=== PATIENT | male | born 1985 ===

== ENCOUNTER 2017-10-21 12:07 | Emergency (ER) | payer OTHER ==
[2017-10-21 12:13] VITALS: BP 143/84
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
[2017-10-21] MEDS ORDERED: MOTRIN PO ONE (12:49)
--- NOTE | 2017-10-21 15:26 | XRay Report ---
LUMBOSACRAL SPINE, 3 VIEWS: History: Back pain Findings: The vertebral bodies, disk spaces and posterior elements are intact. No compression deformity or malalignment. The SI joints are symmetric and unremarkable. Impression: 1. No evidence for acute injury to the lumbar spine.
--- NOTE | 2017-10-21 15:26 | XRay Report ---
AP AND LATERAL CERVICAL SPINE: History: Neck pain. The vertebral bodies are well mineralized and normal in alignment and vertebral height with well preserved interspace distances. The visualized portions of the posterior elements are normal. IMPRESSION: Normal study.
== END 2017-10-21 15:58 | disposition home or self-care (01) ==
LOC: ED 12:07
DX: S13.4XXA Sprain of ligaments of cervical spine, initial encounter (principal); S39.012A Strain of muscle, fascia and tendon of lower back, initial encounter; V89.2XXA Person injured in unspecified motor-vehicle accident, traffic, initial encounter; Y93.89 Activity, other specified; Y92.488 Other paved roadways as the place of occurrence of the external cause; Y99.8 Other external cause status
CPT/HCPCS: 72040; 72100; 99283

== ENCOUNTER 2018-09-08 18:54 | Emergency (ER) | payer OTHER ==
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
[2018-09-08 20:04] VITALS: BP 129/80
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
[2018-09-08] MEDS ORDERED: IBUPROFEN PO ONE (23:33)
[2018-09-08] MEDS ORDERED: TYLENOL PO ONE (23:33)
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
== END 2018-09-09 00:14 | disposition home or self-care (01) ==
LOC: ED 18:54
DX: M62.830 Muscle spasm of back (principal); M54.2 Cervicalgia; R07.89 Other chest pain; Z79.899 Other long term (current) drug therapy; V89.2XXA Person injured in unspecified motor-vehicle accident, traffic, initial encounter; Y93.89 Activity, other specified; Y92.488 Other paved roadways as the place of occurrence of the external cause; Y99.8 Other external cause status
CPT/HCPCS: 71046; 72040; 72100; 99283